=== PATIENT | male | born 1975 | race Hispanic/Latino ===

== ENCOUNTER 2019-08-12 14:57 | Outpatient (CLI) | payer OTHER ==
--- NOTE | 2019-08-12 16:40 | MRI ---
MRI OF LEFT SHOULDER PERFORMED WITHOUT CONTRAST ENHANCEMENT: 08/12/19 HISTORY: Left shoulder pain with painful range of motion. There is marked arthrosis of the AC joint with some subchondral cystic changes involving the distal e nd of the clavicle with some edema change. Also some edema change of the adjacent acromion. The supra as well as infraspinatus tendons are intact. There is some trace edema change of the subacr omial, subdeltoid recess. The subscapularis muscle and tendon are intact and the biceps tendon is in normal position within the bicipital groove. There is increased signal change involving the superior labrum directly posterior to the biceps ancho r. This is not fluid density change, is diffuse staton signal change. This would suggest a chronic SLAP type tear with granulation tissue. There is a cyst adjacent to this area which is probably an associ ated paralabral cyst related to the chronic tear. The inferior glenohumeral ligamentous and labral complex is normal. No significant rotator cuff muscle atrophy. There has been some obliteration of the fat of the subcor acoid fat. This could indicate some element of a capsulitis. IMPRESSION: 1. Chronic appearing SLAP tear of the superior labrum with a paralabral cyst. 2. Moderate arthritic changes of the AC joint with marrow edema change of the distal end of the clavicle and adjacent acromion. POS: [facility]
--- NOTE | 2019-08-12 16:45 | MRI ---
MRI OF RIGHT SHOULDER PERFORMED WITHOUT CONTRAST ENHANCEMENT: 08/12/19 HISTORY: Shoulder pain. The AC joint shows some mild to moderate arthrosis with a laterally downsloping acromion. The supra as well as infraspinatus tendons appear intact. The subscapularis muscle and tendon are normal in appearance and the biceps tendon is normal in posit ion within the bicipital groove. There is increased signal change in the undersurface of the superior labrum, directly posterior to th e biceps anchor. It would be compatible with a SLAP type lesion. There is paralabral cyst located rex ng the posterior inferior labrum associated with a posterior labral tear in this region. This may rep resent a continuation of the SLAP type tear. No significant rotator cuff muscle atrophy. IMPRESSION: 1. Approximately 1 cm paralabral cyst associated with a posterior labral tear involving more of the posterior inferior labrum just below mid equator level. This may be continuation of a SLAP type tear seen of the superior labrum. 2. No evidence of rotator cuff tear. POS: [facility]
== END 2019-08-12 14:58 | disposition home or self-care (01) ==
LOC: BICMRI 14:57
PROVIDERS: ATTEND Family Medicine
DX: S49.92XD Unspecified injury of left shoulder and upper arm, subsequent encounter (principal); M25.812 Other specified joint disorders, left shoulder; M19.012 Primary osteoarthritis, left shoulder; S43.432A Superior glenoid labrum lesion of left shoulder, initial encounter

== ENCOUNTER 2020-03-31 14:05 | Outpatient (CLI) | payer BC ==
--- NOTE | 2020-03-31 16:43 | MRI ---
MRI Lower Ext Jt Rt WO Con History: Knee pain Comparison: None. Findings: Medial meniscus: Full-thickness radial tear posterior horn medial meniscus extending to the root. 2 mm gutter extrusion. Possible prior medial meniscal body trimming of the free edge. Lateral meniscus: Mild fraying posterior horn lateral meniscus. ACL graft has a mild degeneration. Posterior cruciate ligament is intact. Medial collateral ligament and lateral collateral ligaments are intact. Extensor mechanism: Quadriceps tendon, patella and patellar tendons are intact. Cartilage: Patellofemoral compartment: Multifocal mild chondral fraying of the medial and lateral patellar facet s as well as the medial trochlea. No full-thickness defect. Medial compartment: 40-50% cartilage loss throughout the weightbearing surfaces medial femoral condyl e and medial tibial plateau Lateral compartment: Intact Soft tissues: Moderate joint effusion. Few bodies within the posterior lateral recess. Small parameniscal ganglion pseudocyst along the lateral meniscal body. This may be sequelae of a now close d horizontal tear. Impression: 1. Mildly degenerated ACL graft. 2. Full-thickness radial tear posterior horn medial meniscus extending to the root with gutter extrus ion. Likely prior medial meniscal body trimming. 3. Multiple bodies and posterior lateral recess with mild fraying of the posterior horn lateral men iscus. 4. Parameniscal ganglion pseudocyst along the posterior horn body junction lateral meniscus may be se quelae of a now closed cleavage tear. 5. Moderate joint effusion with synovitis. 6. 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 Transcribed Date/Time: 03/31/2020 5:17 PM
--- NOTE | 2020-03-31 17:40 | MRI ---
MRI Lower Ext Jt Lt WO Con History: Knee pain Comparison: None Findings: Medial meniscus: Undersurface flap tear body and posterior horn extending to the root. Minimal extrus ion. Lateral meniscus: Intact ACL, PCL, MCL and LCL are intact. Extensor mechanism: Quadriceps tendon, patella and patellar tendon are intact. Cartilage: Patellofemoral compartment: Intact Medial compartment: 50-60% chondral delamination central weightbearing surface medial tibial plateau without displacement. Lateral compartment: Low-grade chondral fraying. No high-grade defect. Soft tissues: Normal volume joint fluid. No significant popliteal cyst. Small volume edema just deep to the iliotibial band at the lateral femoral condyle. Muscles: Muscle signal and bulk is normal. Impression: 1. Findings of iliotibial band friction syndrome across the lateral femoral condyle. 2. Undersurface flap tear body and posterior horn medial meniscus extending to the root. Minimal ext rusion. 3. 50-60% chondral delamination central weightbearing surface medial tibial plateau without displacem ent. Transcribed Date/Time: 03/31/2020 6:01 PM
== END 2020-03-31 14:06 | disposition home or self-care (01) ==
LOC: BICMRI 14:05
DX: S83.289A Other tear of lateral meniscus, current injury, unspecified knee, initial encounter (principal); S83.242A Other tear of medial meniscus, current injury, left knee, initial encounter; S83.241A Other tear of medial meniscus, current injury, right knee, initial encounter; M25.569 Pain in unspecified knee; M76.32 Iliotibial band syndrome, left leg; M94.261 Chondromalacia, right knee; M25.461 Effusion, right knee; M65.861 Other synovitis and tenosynovitis, right lower leg; M67.461 Ganglion, right knee; T84.4 Mechanical complication of other internal orthopedic devices, implants and grafts